=== PATIENT | female | born 2000 | race Caucasian/White ===

== ENCOUNTER 2022-04-01 18:09 | Emergency (ER) | payer OTHER ==
[2022-04-01] MEDS ORDERED: CEPHALEXIN500 M1 PO (19:56)
== END 2022-04-01 21:00 | disposition home or self-care (01) ==
LOC: ER1 18:09
DX: O20.0 Threatened abortion (principal); O99.891 Other specified diseases and conditions complicating pregnancy; R82.71 Bacteriuria; Z3A.15 15 weeks gestation of pregnancy
CPT/HCPCS: 81001; 87086; 99284

== ENCOUNTER 2022-06-03 14:52 | Emergency (ER) | payer OTHER ==
[~2022-06-03 14:52] MED LIST: CEPHALEXIN500 M1 PO
[2022-06-03 16:23] LABS: HEMOGLOBIN 11.9 gm/dl (12.3-15.3); RED BLOOD COUNT 4.22 M/UL (4.00-5.10); WHITE BLOOD COUNT 12.6 K/UL (4.5-11.0)
[2022-06-03 16:32] LABS: BORDETELLA PARAPERTUSSIS Not Detected (Not Detectd); BORDETELLA PERTUSSIS Not Detected (Not Detectd); CHLAMYDIA PNEUMONIAE Not Detected (Not Detectd); CORONAVIRUS HKU1 Not Detected (Not Detectd); CORONAVIRUS NL63 Not Detected (Not Detectd); CORONAVIRUS OC43 Not Detected (Not Detectd); CORONOAVIRUS 229E Not Detected (Not Detectd); HUMAN METAPNEUMOVIRUS Not Detected (Not Detectd); INFLUENZA A Not Detected (Not Detectd); INFLUENZA B Not Detected (Not Detectd); MYCOPLASMA PNEUMONIAE Not Detected (Not Detectd); PARAINFLUENZA VIRUS 1 Not Detected (Not Detectd); PARAINFLUENZA VIRUS 2 Not Detected (Not Detectd); PARAINFLUENZA VIRUS 3 Not Detected (Not Detectd); PARAINFLUENZA VIRUS 4 Not Detected (Not Detectd); RESPIRATORY SYNCYTIAL VIRUS Not Detected (Not Detectd)
[2022-06-03 16:45] LABS: BUN/CREATININE RATIO 11 (0-10)
[2022-06-03 18:24] LABS: HUMAN RHINOVIRUS/ENTEROVIRUS DETECTED (Not Detectd); SARS-CoV-2 NOT DETECTED (Not Detectd)
== END 2022-06-03 18:45 | disposition home or self-care (01) ==
LOC: ER1 14:52
PROVIDERS: Preventive Medicine Occupational Medicine
DX: J30.9 Allergic rhinitis, unspecified (principal); F41.9 Anxiety disorder, unspecified; Z20.822 Contact with and (suspected) exposure to COVID-19
CPT/HCPCS: 36600; 71045; 80053; 80307; 81001; 82803; 83880; 84439; 84443; 85025; 86140; 87040; 87633; 93005; 99285